=== PATIENT | male | born 1975 | race Asian ===

== ENCOUNTER 2017-10-23 18:05 | Inpatient (IN) | payer OTHER ==
[2017-10-23 18:33] LABS: TROPONIN BY ISTAT 0.03 ng/ml (<0.08)
[2017-10-23 18:37] LABS: ADD MAN DIFF? NO
[2017-10-23 18:42] LABS: BASO # 0.1 x10^3/uL (0.0-0.2); BASO % 1 % (0-3); EOS # 0.3 x10^3/uL (0.0-0.7); EOS % 6 % (0-3); HEMATOCRIT 43.5 % (39.0-53.0); HEMOGLOBIN 15.3 g/dL (13.0-17.5); LYMPH # 2.1 x10^3/uL (1.0-4.8); LYMPH % 41 % (24-48); MEAN CORPUSCULAR HEMOGLOBIN 31 pg (25-35); MEAN CORPUSCULAR HGB CONC 35 g/dL (31-37); MEAN CORPUSCULAR VOLUME 89 fL (79-100); MONO # 0.5 x10^3/uL (0.0-1.1); MONO % 9 % (0-9); NEUT # 2.2 x10^3uL (1.8-7.7); NEUT % 43 % (31-73); PLATELET COUNT 167 x10^3/uL (140-400); RED BLOOD COUNT 4.89 x10^6/uL (4.30-5.70); RED CELL DISTRIBUTION WIDTH 13.9 % (11.5-14.5); WHITE BLOOD COUNT 5.2 x10^3/uL (4.0-11.0)
[2017-10-23 19:23] LABS: ANION GAP 8 (6-14); BLOOD UREA NITROGEN 11 mg/dL (8-26); CALCIUM 8.2 mg/dL (8.5-10.1); CARBON DIOXIDE 29 mmol/L (21-32); CHLORIDE 105 mmol/L (98-107); GFR 81.9; GLUCOSE 102 mg/dL (70-99); POTASSIUM 3.7 mmol/L (3.5-5.1); SODIUM 142 mmol/L (136-145)
[2017-10-23 19:31] LABS: TROPONINI < 0.017 ng/mL (0.000-0.055)
[2017-10-23 19:34] LABS: NT-PRO BNP 116 pg/mL (0-124)
[2017-10-23] MEDS ORDERED: ACETAMINOPHEN 325 MG TABLET. PO (19:45)
[2017-10-23] MEDS: ONDANSETRON PF 4 MG/2 ML VIAL. IV (19:51)
[2017-10-23] MEDS: MORPHINE SULFATE 4 MG/ML DISP.SYRIN. IV (19:51)
[2017-10-23 20:00] LABS: D-DIMER 0.27 ug/mlFEU (0.00-0.50); PROTHROMBIN TIME PATIENT 12.8 SEC (11.7-14.0)
[2017-10-23 22:50] LABS: TROPONINI < 0.017 ng/mL (0.000-0.055)
[2017-10-24] MEDS: MORPHINE SULFATE 4 MG/ML DISP.SYRIN. IV ×2 (00:07→05:30)
[2017-10-24 01:35] LABS: ADD MAN DIFF? NO
[2017-10-24 02:24] LABS: BASO % 0 % (0-3); EOS # 0.3 x10^3/uL (0.0-0.7); EOS % 5 % (0-3); HEMATOCRIT 41.1 % (39.0-53.0); HEMOGLOBIN 14.6 g/dL (13.0-17.5); LYMPH # 2.7 x10^3/uL (1.0-4.8); LYMPH % 47 % (24-48); MEAN CORPUSCULAR HEMOGLOBIN 31 pg (25-35); MEAN CORPUSCULAR HGB CONC 35 g/dL (31-37); MEAN CORPUSCULAR VOLUME 89 fL (79-100); MONO # 0.5 x10^3/uL (0.0-1.1); MONO % 9 % (0-9); NEUT # 2.2 x10^3uL (1.8-7.7); NEUT % 38 % (31-73); PLATELET COUNT 189 x10^3/uL (140-400); RED BLOOD COUNT 4.65 x10^6/uL (4.30-5.70); RED CELL DISTRIBUTION WIDTH 13.8 % (11.5-14.5); WHITE BLOOD COUNT 5.8 x10^3/uL (4.0-11.0)
[2017-10-24 02:37] LABS: ALBUMIN 3.3 g/dL (3.4-5.0); ALBUMIN/GLOBULIN RATIO 0.9 (1.0-1.7); ALK PHOS 104 U/L (46-116); ALT (SGPT) 29 U/L (16-63); ANION GAP 5 (6-14); AST (SGOT) 66 U/L (15-37); BLOOD UREA NITROGEN 14 mg/dL (8-26); BUN/CREATININE RATIO 12 (6-20); CALCIUM 8.4 mg/dL (8.5-10.1); CARBON DIOXIDE 33 mmol/L (21-32); CHLORIDE 106 mmol/L (98-107); CREATININE 1.2 mg/dL (0.7-1.3); GFR 66.4; GLUCOSE 83 mg/dL (70-99); POTASSIUM 3.8 mmol/L (3.5-5.1); SODIUM 144 mmol/L (136-145); TOTAL BILIRUBIN 0.7 mg/dL (0.2-1.0); TOTAL PROTEIN 6.8 g/dL (6.4-8.2)
[2017-10-24 02:38] LABS: TROPONINI < 0.017 ng/mL (0.000-0.055)
[2017-10-24 09:10] LABS: CHOLESTEROL 131 mg/dL (0-200); HDLC 39 mg/dL (40-60); LDLC 76 mg/dL (0-100); NON-HDL CHOLESTEROL 92 mg/dL (0-129); TRIGLYCERIDES 78 mg/dL (0-150); VLDLC 16 mg/dL (0-40)
[2017-10-24 09:11] LABS: CHOLESTEROL/HDL RATIO 3.4
[2017-10-24 09:19] LABS: THYROID STIM HORMONE (TSH) 3.179 uIU/mL (0.358-3.74)
[2017-10-24] MEDS: REGADENOSON 0.4 MG/5 ML DISP.SYRIN. IV (11:13)
[2017-10-24] MEDS: ONDANSETRON PF 4 MG/2 ML VIAL. IV (11:52)
[2017-10-24] MEDS: ASPIRIN ENTERIC COATED 81 MG TABLET.DR. PO (11:52)
[2017-10-24] MEDS: CLOPIDOGREL BISULFATE 75 MG TABLET PO (11:52)
[2017-10-24] MEDS ORDERED: ATORVASTATIN CALCIUM 10 MG TABLET. PO (21:00)
== END 2017-10-24 16:00 | disposition home or self-care (01) | DRG 313 ==
LOC: ER 18:05 → 5 SOUTH 19:30
DX: R07.89 Other chest pain (principal); I25.10 Atherosclerotic heart disease of native coronary artery without angina pectoris; F20.9 Schizophrenia, unspecified; K74.60 Unspecified cirrhosis of liver; B19.20 Unspecified viral hepatitis C without hepatic coma; F11.90 Opioid use, unspecified, uncomplicated; F17.210 Nicotine dependence, cigarettes, uncomplicated; Z82.49 Family history of ischemic heart disease and other diseases of the circulatory system; Z88.0 Allergy status to penicillin; F41.9 Anxiety disorder, unspecified; F31.9 Bipolar disorder, unspecified; M19.90 Unspecified osteoarthritis, unspecified site; Z98.61 Coronary angioplasty status
CPT/HCPCS: 36415; 71045; 78452; 80048; 80053; 80061; 83880; 84443; 84484; 85025; 85379; 85610; 93005; 93017; 93306; 96374; 96375; 96376; 99285; 99285-25; A9500; J2270; J2405; J2785